=== PATIENT | male | born 1980 | race Caucasian/White ===

== ENCOUNTER 2019-11-19 08:53 | Emergency (ER) | payer BC ==
[2019-11-19] MEDS ORDERED: Famotidine 20 MG Tab PO ONE (09:23)
[2019-11-19] MEDS ORDERED: Dexamethasone 4 MG Tab PO ONE (09:23)
--- NOTE | 2019-11-19 09:28 | EDM.PDOC ---
ED HPI GENERAL MEDICAL PROBLEM - General Chief Complaint: Allergic Reaction Stated Complaint: ALLERGIC REACTION Time Seen by Provider: 11/19/19 08:58 - History of Present Illness INITIAL COMMENTS - FREE TEXT/NARRATIVE: History of present illness: Patient presents with skin irritation or rash after being exposed to a chemical at work yesterday he has not showered and been isolated from substance he says this is happened to him in the past. He has no respiratory distress no trouble breathing no swallowing difficulties primarily is affecting his arms around his eyes and in his groin he is taken Benadryl at home but this has not relieved the itching and the swelling. Review of systems: As per history of present illness and below otherwise all systems reviewed and negative. Past medical history: As per history of present illness and as reviewed below otherwise noncontributory. Surgical history: As per history of present illness and as reviewed below otherwise noncontributory. Social history: No reported history of drug or alcohol abuse. Family history: As per history of present illness and as reviewed below otherwise noncontributory. Physical exam: HEENT: Atraumatic, normocephalic, pupils reactive, negative for conjunctival pallor or scleral icterus, mucous membranes moist, throat clear, neck supple, nontender, trachea midline. Lungs: Clear to auscultation, breath sounds equal bilaterally, chest nontender. Heart: S1S2, regular, negative for clicks, rubs, or JVD. Abdomen: Soft, nondistended, nontender. Negative for masses or hepatosplenomegaly. Negative for costovertebral tenderness. Pelvis: Stable nontender. Genitourinary: Deferred. Rectal: Deferred. Extremities: Atraumatic, negative for cords or calf pain. Neurovascular unremarkable. Neuro: Awake, alert, oriented. Cranial nerves II through XII unremarkable. Cerebellum unremarkable. Motor and sensory unremarkable throughout. Exam nonfocal. Skin: There is erythema and swelling around the eyes the AC fossa. Diagnostics: [] Therapeutics: [] Impression: Rash [] Plan: Patient has no respiratory distress or difficulty swallowing we will start him on some Decadron here prednisone at home and he is to use Benadryl and Pepcid as needed for itching. [] Definitive disposition and diagnosis as appropriate pending reevaluation and review of above. - Related Data Allergies Allergy/AdvReac Type Severity Reaction Status Date / Time No Known Allergies Allergy Verified 11/19/19 09:19 Home Meds: Home Meds predniSONE 60 mg PO WITHBREAKFAST 5 Days #15 tab 11/19/19 [Rx] ED ROS ALLERGIC REACTION - Review of Systems Review Of Systems: See Below ED EXAM GENERAL NO PERIP PULSE - Physical Exam Exam: See Below Course - Vital Signs Last Recorded V/S: Last Vital Signs Temp 36.4 C 11/19/19 09:15 Pulse 96 11/19/19 09:15 Resp 16 11/19/19 09:15 BP 136/76 11/19/19 09:15 Pulse Ox 98 11/19/19 09:15 - Orders/Labs/Meds Meds: Medications Discontinued Medications Generic Name Dose Route Start Last Admin Trade Name Kel PRN Reason Stop Dose Admin Dexamethasone 8 mg 11/19/19 09:23 Dexamethasone PO 11/19/19 09:24 ONETIME ONE Famotidine 20 mg 11/19/19 09:23 Pepcid PO 11/19/19 09:24 ONETIME ONE Departure - Departure Time of Disposition: :27 Disposition: Home, Self-Care 01 Condition: Good Clinical Impression: Rash - Discharge Information *PRESCRIPTION DRUG MONITORING PROGRAM REVIEWED*: Not Applicable *COPY OF PRESCRIPTION DRUG MONITORING REPORT IN PATIENT [place]: Not Applicable Instructions: Rash, Adult Referrals: PCP,None [Primary Care Provider] - Additional Instructions: The following information is given to patients seen in the emergency department who are being discharged to home. This information is to outline your options for follow-up care. We provide all patients seen in our emergency department with a follow-up referral. The need for follow-up, as well as the timing and circumstances, are variable depending upon the specifics of your emergency department visit. If you don't have a primary care physician on staff, we will provide you with a referral. We always advise you to contact your personal physician following an emergency department visit to inform them of the circumstance of the visit and for follow-up with them and/or the need for any referrals to a consulting specialist. The emergency department will also refer you to a specialist when appropriate. This referral assures that you have the opportunity for follow-up care with a specialist. All of these measure are taken in an effort to provide you with optimal care, which includes your follow-up. Under all circumstances we always encourage you to contact your private physician who remains a resource for coordinating your care. When calling for follow-up care, please make the office aware that this follow-up is from your recent emergency room visit. If for any reason you are refused follow-up, please contact the [facility] Emergency Department at and asked to speak to the emergency department charge nurse. [facility] [address] [place] [id number] [facility] [address] [place] [id number] Sepsis Event Note (ED) - Evaluation Sepsis Screening Result: No Definite Risk - Focused Exam Vital Signs: Vital Signs Temp Pulse Resp BP Pulse Ox 11/19/19 09:15 36.4 C 96 16 136/76 98
== END 2019-11-19 09:46 | disposition home or self-care (01) ==
LOC: MW.ED 08:53
DX: R21 Rash and other nonspecific skin eruption (principal)
CPT/HCPCS: 99282; A9270; J8540

== ENCOUNTER 2023-05-16 23:22 | Emergency (ER) | payer SELFPAY | END 2023-05-17 00:54 | disposition home or self-care (01) | LOC: MW.ED 23:22 | DX: F10.129 Alcohol abuse with intoxication, unspecified (principal); Z88.0 Allergy status to penicillin | CPT/HCPCS: 82947; 99282; 99284 ==